=== PATIENT | male | born 1965 | race African-American/Black ===

== ENCOUNTER 2017-06-12 18:04 | Emergency (ER) | payer MEDICAID ==
[~2017-06-12] VITALS: Ht 172.7 cm; Wt 170.0 kg
[2017-06-12] MEDS ORDERED: QUET100T PO (18:19)
[2017-06-12] MEDS ORDERED: BENZ1TAB7 PO (18:22)
[2017-06-12] MEDS ORDERED: HYDR12.529 PO (18:22)
[2017-06-12] MEDS ORDERED: ABIL10 PO (18:22)
[2017-06-12] MEDS ORDERED: SERT25TA74 PO (18:22)
[2017-06-12] MEDS ORDERED: LISI-604 PO (18:22)
[2017-06-12] MEDS ORDERED: IBUPROFEN 800MG TABLET PO ONE (18:45)
[2017-06-12 19:07] LABS: BASOPHILS % 1.3 % (0.0-2.0); EOSINOPHILS % 4.4 % (0.0-5.0); HEMATOCRIT. 39.9 % (42.0-52.0); HEMOGLOBIN. 13.9 g/dL (14.0-18.0); LYMPHOCYTES % 42.8 % (20.0-50.0); MEAN CORPUSCULAR HEMOGLOBIN 29.3 pg (28.0-32.0); MEAN CORPUSCULAR VOLUME 83.9 fL (80.0-94.0); MEAN PLATELET VOLUME 7.5 fl (7.4-10.4); MONOCYTES % 10.1 % (2.0-8.0); NEUTROPHILS % 41.4 % (40.0-76.0); PLATELET 256 x1000/uL (130-400); RED BLOOD CELL COUNT 4.75 mill/uL (4.7-6.1); RED CELL DISTRIBUTION WIDTH 13.7 % (11.6-14.6)
[2017-06-12 19:11] LABS: CHLORIDE 105 mEq/L (98-107)
[2017-06-12 19:15] LABS: ETHANOL BLOOD < 10 mg/dL
[2017-06-12 20:08] LABS: CLARITY URINE CLEAR (CLEAR); COLOR URINE YELLOW (YELLOW); KETONES URINE NEGATIVE (NEGATIVE); LEUKOCYTE ESTERASE URINE NEGATIVE (NEGATIVE); NITRITE URINE NEGATIVE (NEGATIVE); OCCULT BLOOD URINE NEGATIVE (NEGATIVE); PH URINE 5.5 (4.5-8.0); PROTEIN URINE NEGATIVE (NEGATIVE); SPECIFIC GRAVITY URINE 1.012 (1.005-1.030); UROBILINOGEN URINE 0.2 E.U./dL (0.2-1.0)
[2017-06-12] MEDS ORDERED: ACETAMINOPHEN 325MG TABLET PO ONE (20:30)
[2017-06-12 20:32] LABS: *AMPHETAMINES SCREEN URINE NEGATIVE (NEGATIVE); *BARBITURATES SCREEN URINE NEGATIVE (NEGATIVE); *BENZODIAZEPINES SCREEN URINE NEGATIVE (NEGATIVE)
[2017-06-12 20:33] LABS: *COCAINE SCREEN URINE NEGATIVE (NEGATIVE); CANNABINOID URINE SCREEN NEGATIVE (NEGATIVE); METHADONE URINE SCREEN NEGATIVE (NEGATIVE); OPIATES URINE SCREEN NEGATIVE (NEGATIVE); PHENCYCLIDINE URINE SCREEN NEGATIVE (NEGATIVE)
[2017-06-12] MEDS ORDERED: LORAZEPAM 2MG/ML CPJ IM ONE (21:30)
[2017-06-13 09:19] VITALS: BP 132/76
== END 2017-06-13 09:51 | disposition home or self-care (01) ==
LOC: ER 18:07
DX: F20.9 Schizophrenia, unspecified (principal); R51 Headache; F10.20 Alcohol dependence, uncomplicated; I10 Essential (primary) hypertension; R45.851 Suicidal ideations
CPT/HCPCS: 36415; 80053; 80305; 80307; 80329; 81003; 85025; 96372; 99284; G0482; J2060

== ENCOUNTER 2023-12-02 11:37 | Emergency (ER) | payer MEDICAID ==
[~2023-12-02] VITALS: Ht 170.2 cm; Wt 79.8 kg
[~2023-12-02 11:37] MED LIST: ABIL10 PO; BENZ1TAB78 PO; HYDR12.529 PO; LISI20TA31 PO; QUET100T PO; SERT25TA74 PO
[2023-12-02 11:46] VITALS: TEMP 98.2; O2SAT 100; O2SAT 99
[2023-12-02] MEDS ORDERED: NAPR-1176 MT (12:55)
[2023-12-02] MEDS ORDERED: CYCL10TA21 MT (12:55)
[2023-12-02 13:16] VITALS: BP 157/78; PULSE 76; RESP 16
[2023-12-02] MEDS: CYCLOBENZAPRINE 10MG TABLET PO ONE (13:16)
[2023-12-02] MEDS: KETOROLAC 30MG/ML VIAL IM ONE (13:16)
== END 2023-12-02 13:16 | disposition home or self-care (01) ==
LOC: ER 11:37
DX: S40.011A Contusion of right shoulder, initial encounter (principal); S60.221A Contusion of right hand, initial encounter; I10 Essential (primary) hypertension; F10.20 Alcohol dependence, uncomplicated; Z79.899 Other long term (current) drug therapy; Z98.890 Other specified postprocedural states; Y08.89XA Assault by other specified means, initial encounter; Y93.89 Activity, other specified; Y92.89 Other specified places as the place of occurrence of the external cause; Y99.8 Other external cause status; Y90.9 Presence of alcohol in blood, level not specified
CPT/HCPCS: 73030; 73130; 96372; 99284; J1885; Z7610